=== PATIENT | female | born 1995 | race Caucasian/White ===

== ENCOUNTER 2019-01-08 21:31 | Emergency (ER) | payer OTHER ==
[2019-01-08] MEDS ORDERED: Ibuprofen TAB* 400 MG PO ONE ×2 (21:50→22:05)
--- NOTE | 2019-01-08 21:51 | ED ---
Burn - HPI Summary HPI Summary: This patient is a 23 year old F presenting to [facility] with a chief complaint of burn on left hand since prior to arrival today. Pt was making dinner in the oven and grabbed a hot francois with her hand. Per triage, the patient rates the pain 6/10 in severity. Symptoms alleviated by ice. - History of Current Complaint Chief Complaint: EDExtremityUpper Stated Complaint: BURN ON MY HAND PER PT Hx Obtained From: Patient Occurred: Minutes Ago Length of Exposure: Seconds Onset Severity: Moderate Current Severity: Moderate Pain Intensity: 6 Pain Scale Used: 0-10 Numeric Location: RUE Character: Direct Thermal Contact Aggravating: Nothing Alleviating: Other - ice Associated Signs & Symptoms: Positive: Negative - Allergy/Home Medications Allergies/Adverse Reactions: Allergies Allergy/AdvReac Type Severity Reaction Status Date / Time Sulfa (Sulfonamide Allergy GI Upset Verified 01/08/19 21:39 Antibiotics) Home Medications: Home Medications NK [No Home Medications Reported] 01/08/19 [History Confirmed 01/08/19] PMH/Surg Hx/FS Hx/Imm Hx Sensory History: Denies: Hx Legally Blind, Hx Deafness Opthamlomology History: Denies: Hx Legally Blind EENT History: Denies: Hx Deafness - Surgical History Surgical History: None Infectious Disease History: No Infectious Disease History: Denies: Traveled Outside the [place] in Last 30 Days - Family History Known Family History: Negative: Hypertension, Diabetes - Social History Occupation: Student Alcohol Use: Weekly Alcohol Amount: 4 drinks, 2x/week Substance Use Type: Reports: None Smoking Status (MU): Never Smoked Tobacco Review of Systems Negative: Fever Positive: Other - burn to left hand All Other Systems Reviewed And Are Negative: Yes Physical Exam - Summary Physical Exam Summary: Physical exam findings limited to left hand, area of thermal burn on the palmar aspect of first web space with some blistering, good ROM of thumb. Triage Information Reviewed: Yes Vital Signs On Initial Exam: Initial Vitals Temp Pulse Resp BP Pulse Ox 97.9 F 83 14 132/87 100 01/08/19 21:34 01/08/19 21:34 01/08/19 21:34 01/08/19 21:34 01/08/19 21:34 Vital Signs Reviewed: Yes Burn Calculation - New Site Formula for Fluid Resuscitation Weight: 53.524 kg 24 -Hour Fluid Replacement: 0.0 Diagnostics - Vital Signs Vital Signs Temp Pulse Resp BP Pulse Ox 01/08/19 21:34 97.9 F 83 14 132/87 100 - Laboratory Lab Statement: Any lab studies that have been ordered have been reviewed, and results considered in the medical decision making process. Burn Course/Dx - Course Course Of Treatment: This patient is a 23 year old F presenting to [facility] with a chief complaint of burn on left hand since prior to arrival today. Pt was making dinner in the oven and grabbed a hot francois with her hand. Per triage, the patient rates the pain 6/10 in severity. Symptoms alleviated by ice. Physical exam findings limited to left hand, area of thermal burn on the palmar aspect of first web space with some blistering, good ROM of thumb. Patient will be discharged. The patient is agreeable with this plan. - Diagnoses Provider Diagnosis: Thermal burn, Second degree burn of left hand Discharge ED - Sign-Out/Discharge Documenting (check all that apply): Patient Departure - Discharge Patient Received Moderate/Deep Sedation with Procedure: No - Discharge Plan Condition: Good Disposition: HOME Patient Education Materials: Second Degree Burn (ED) Referrals: Care [facility] [Outside] - If Needed No Primary Care Phys,NOPCP [Primary Care Provider] - Additional Instructions: These types of perez tend to heal quite well over a period of about 2 weeks. Keep the area covered to limit further injury when you use your hand. Take OTC pain meds like motrin as needed for pain. - Billing Disposition and Condition Condition: GOOD Disposition: Home - Attestation Statements Document Initiated by Andrews: Yes Documenting Scribe: Amparo Rahman Provider For Whom Andrews is Documenting (Include Credential): Efrain العلي MD Scribe Attestation: Amparo Contreras scribed for Efrain العلي MD on 01/09/19 at 0513. Scribe Documentation Reviewed: Yes Provider Attestation: The documentation as recorded by the Amparo aquino accurately reflects the service I personally performed and the decisions made by me, Efrain العلي MD Status of Scribe Document: Viewed
[2019-01-08 22:02] VITALS: BP 118/75
== END 2019-01-08 22:14 | disposition home or self-care (01) ==
LOC: ED 21:31
DX: T23.202A Burn of second degree of left hand, unspecified site, initial encounter (principal); X19.XXXA Contact with other heat and hot substances, initial encounter; Y93.G3 Activity, cooking and baking; Y92.000 Kitchen of unspecified non-institutional (private) residence as the place of occurrence of the external cause; Z88.2 Allergy status to sulfonamides
CPT/HCPCS: 99282; A9270-GY